=== PATIENT | male | born 1985 | race Caucasian/White ===

== ENCOUNTER 2021-09-07 15:08 | Emergency (ER) | payer MEDICAID ==
[~2021-09-07] VITALS: Ht 172.7 cm; Wt 70.5 kg
[2021-09-07] MEDS ORDERED: acetaminophen 325mg tablet PO ONE (16:05)
[2021-09-07] MEDS ORDERED: BEBTELOVIMAB 175 MG/2 ML VIAL IV ONE (16:10)
[2021-09-07 16:21] LABS: BASOPHILS % (AUTO) 0.5 % (0-1); EOSINOPHILS % (AUTO) 0.8 % (0-6); HEMATOCRIT 42.9 % (42.0-52.0); HEMOGLOBIN 14.9 g/dl (14.0-17.9); LYMPHOCYTES # (AUTO) 0.7 X10'3 (1.1-4.8); LYMPHOCYTES % (AUTO) 16.4 % (21-51); MEAN CORPUSCULAR HEMOGLOBIN 30.8 PG (27.0-31.0); MEAN CORPUSCULAR HGB CONC 34.8 g/dL (33.0-36.5); MEAN CORPUSCULAR VOLUME 88.3 FL (78-98); MEAN PLATELET VOLUME 8.7 FL (7.4-10.4); MONOCYTES # (AUTO) 0.6 X10'3 (0-0.9); MONOCYTES % (AUTO) 14.8 % (2-12); NEUTROPHILS # (AUTO) 2.8 X10'3 (1.8-7.7); NEUTROPHILS % (AUTO) 67.5 % (42-75); PLATELET COUNT 142 X10'3 (140-440); RED BLOOD COUNT 4.86 X10'6 (4.70-6.10); RED CELL DISTRIBUTION WIDTH 12.1 % (11.5-14.5); WHITE BLOOD COUNT 4.2 X10'3 (4.5-11.0)
[2021-09-07 16:36] LABS: D-DIMER < 0.19 MG/L FEU (0-0.50)
[2021-09-07 18:10] LABS: ALANINE AMINOTRANSFERASE 27 U/L (12-78); ALBUMIN 3.8 G/DL (3.4-5.0); ALBUMIN/GLOBULIN RATIO 1.1 (1.1-1.5); ALKALINE PHOSPHATASE 65 IU/L (46-116); ANION GAP 12 (8-16); ASPARTATE AMINO TRANSFERASE 17 U/L (10-37); BILIRUBIN,TOTAL 0.5 MG/DL (0.1-1.0); BLOOD UREA NITROGEN 13 MG/DL (7-18); BUN/CREATININE RATIO 12.3 (5.4-32.0); C-REACTIVE PROTEIN 4.29 MG/DL (0.0-0.5); CALCIUM 9.1 MG/DL (8.5-10.1); CHLORIDE 103 MMOL/L (99-107); CREATININE 1.06 MG/DL (0.60-1.10); GLUCOSE 118 MG/DL (70-104); POTASSIUM 3.7 MMOL/L (3.5-5.1); SODIUM 142 MMOL/L (135-145); TOTAL CARBON DIOXIDE 27.3 MMOL/L (24-32); TOTAL PROTEIN 7.4 G/DL (6.4-8.2); eGFR 80 ML/MIN
[2021-09-07 18:54] VITALS: BP 146/89
== END 2021-09-07 18:57 | disposition home or self-care (01) ==
LOC: ER 15:09
DX: U07.1 COVID-19 (principal); J12.82 Pneumonia due to coronavirus disease 2019
CPT/HCPCS: 36415; 71045; 80053; 84145; 85025; 85379; 86140; 87635; 99291; C9803; M0222; Q0222

== ENCOUNTER 2024-08-02 12:30 | Emergency (ER) | payer MEDICAID ==
[~2024-08-02] VITALS: Ht 172.7 cm; Wt 69.8 kg
[2024-08-02 12:34] VITALS: BP 169/85; PULSE 108; TEMP 98; O2SAT 100
[2024-08-02 13:52] VITALS: RESP 16
--- NOTE | 2024-08-02 14:40 | Physician Documentation ---
History of Present Illness ~ Chief Complaint: Cold, cough & congestion Stated Complaint: COLD SYMPTOMS Time Seen by MD: 13:14 Primary Medical Doctor: none HPI This is a 39-year-old male who presents with cough and sore throat, patient in contact with his parents who both tested positive for COVID-19. Patient reports onset of symptoms today. Patient reports no other acute symptoms or concerns. Medication Reconciliation Allergies: Coded Allergies: erythromycin base (Verified Allergy, Unknown, 08/02/24) Scheduled Fluticasone Propionate (Flonase), 2 SPRAYS BOTHNARES DAILY Past Medical History Past Medical History: Lymphoma Past Surgical History: cancer surgery Alcohol Use: None Drug Use: none Lives with: Family Lives In: Home Review of Systems ROS Cough and sore throat as stated above in the HPI, otherwise all systems are reviewed and negative. Physical Exam Vital Signs: Temperature: 98.0, Source: Temporal, Heart Rate: 108, Respiratory Rate: 16, BP: 169/85, Pulse Oximetry: 100, Weight: 69.800 Physical Exam VITALS: Reviewed and as above. GENERAL: Alert, nontoxic appearing, no apparent distress. RESPIRATORY: No increased work of breathing, no respiratory distress, speaking in full clear sentences, lung sounds clear in all mtz CV: Regular rate and rhythm no murmur Progress Results/Orders Results/Orders Orders - COLTON TRACY Covid19 Binax Poc Result Entry (08/02/24 13:18) Vital Signs 08/02/24 08/02/24 12:34 13:52 Temp 98.0 Pulse 108 Resp 18 16 B/P (MAP) 169/85 Pulse Ox 100 Laboratory Tests Test 08/02/24 13:16 SARS-CoV-2 Antigen (Rapid) Positive A Medical Decision Making Findings This is an otherwise well 39-year-old male who presented with one day of cough a nd sore throat after close contact with family members who tested positive for COVID-19, patient tested positive for COVID-19 in the department. This is physical exam was benign and vital signs were stable without evidence of hypoxia. Physical exam and history is consistent with a viral upper respiratory tract infection caused by COVID-19. Patient is appropriate for outpatient f ollow up. Differential Dx:Considerations: Include: Allergic rhinitis, Pneumonia, Pnuemonitis, Sinusitis Departure Disposition: HOME / SELF CARE / HOMELESS Impression: Primary Impression: Upper respiratory tract infection due to 2019 novel coronavirus Condition: Improved Discharge Instructions: Upper Respiratory Infection, Adult Additional Instructions: Treatment for COVID-19 supportive care with maintaining adequate hydration and rest. Make sure you are covering your cough, wearing a mask when around others, and washing your hands frequently. May use ibuprofen and or Tylenol as directed by the [id number] packaging as needed for pain and fever. [id number] nasal saline rinses and Flonase may help with nasal congestion. Please follow up with your primary care provider in the next few days. Please return to the emergency department for any new or worsening concerning symptoms including but not limited to shortness of breath or chest pain. Referrals: NO PRIMARY CARE PROVIDER (PCP) Prescriptions Fluticasone Propionate (Flonase) 16 Gm [place].susp 2 SPRAYS BOTHNARES DAILY for 30 Days, #16 GM Prov: COLTON TRACY 08/02/24 Education Educated: Patient Educated regarding: diagnosis, treatment, prognosis, need for follow up Signature Scribe Signature: No scribe Attestation: The note accurately reflects work and decisions made by me.KEN Jean 08/02/24 21:58 COLTON TRACY August 02, 2024 14:40
[2024-08-02] MEDS ORDERED: FLUT16SP2 BOTHNARES (15:43)
== END 2024-08-02 16:13 | disposition home or self-care (01) ==
LOC: ER 12:31
DX: U07.1 COVID-19 (principal); J06.9 Acute upper respiratory infection, unspecified; Z88.1 Allergy status to other antibiotic agents; Z79.899 Other long term (current) drug therapy
CPT/HCPCS: 36415; 87811; 99283